=== PATIENT | female | born 1960 | race Caucasian/White ===

== ENCOUNTER 2017-05-04 09:07 | Emergency (ER) | payer OTHER, BC ==
[~2017-05-04] VITALS: Ht 157.5 cm; Wt 95.4 kg
[~2017-05-04 09:07] MED LIST: DULO1CAP PO; MELOX PO; MOBI4TAB PO
[2017-05-04] MEDS ORDERED: DULO30CA PO (09:14)
[2017-05-04] MEDS ORDERED: PERCOCET 5MG/325MG TAB PO ONE (10:00)
[2017-05-04] MEDS ORDERED: PERC5TAB12 PO (11:27)
[2017-05-04] MEDS ORDERED: CYCL5TAB PO (11:30)
[2017-05-04 11:35] VITALS: BP 133/85
--- NOTE | 2017-05-04 12:20 | REP ---
RIGHT RIBS, PA CHEST, FIVE VIEWS: HISTORY: Pain. Linear densities are present in the lower lobes consistent with atelectasis or scar. The heart is normal in size. The pulmonary vasculature is normal in appearance. The bony structure is intact. IMPRESSION: Bibasilar atelectasis or scar. Signed by Aram Longo MD 05/04/2017 12:27 P
== END 2017-05-04 11:42 | disposition home or self-care (01) ==
LOC: M ED 09:07
DX: S23.41XA Sprain of ribs, initial encounter (principal); X50.0XXA Overexertion from strenuous movement or load, initial encounter; Y92.89 Other specified places as the place of occurrence of the external cause; Y93.89 Activity, other specified; Y99.0 Civilian activity done for income or pay

== ENCOUNTER 2017-06-15 19:42 | Emergency (ER) | payer BC, OTHER ==
[~2017-06-15] VITALS: Ht 160 cm; Wt 97.9 kg
[~2017-06-15 19:42] MED LIST changes: +CYCL5TAB PO; +DULO30CA PO; +PERC5TAB12 PO
[2017-06-15 19:44] VITALS: BP 136/77
[2017-06-15] MEDS ORDERED: FLUO20CA19 PO (19:48)
[2017-06-15] MEDS ORDERED: NORCO, ANEXSIA 5/325MG TABLET (HYDROcodone/ACETAMINOPHEN) PO ONE (20:30)
[2017-06-15] MEDS ORDERED: HYDR-3713 PO (20:51)
[2017-06-15] MEDS ORDERED: NORCO 5/325MG TABLET (BULK FOR ED) PO ONE (21:00)
--- NOTE | 2017-06-15 23:14 | REP ---
Clinical: Trauma. Injury. Technique: Internal rotation, external rotation, and Y view of the right shoulder. Findings: Age-related arthritic degenerative changes include cortical irregularity and subtle spurring at the acromioclavicular joint. No obvious acute fracture dislocation. Glenohumeral joint appears intact and normal. No periarticular calcifications or subcutaneous emphysema noted. Impression: Age-related degenerative changes without acute fracture or dislocation. Signed by Alejandro Acosta MD 06/15/2017 11:06 P
--- NOTE | 2017-06-15 23:17 | REP ---
Clinical: Trauma. Technique: Frontal view of the chest with multiple views of the right hemithorax. Findings: Frontal view of the chest suggests the feet chronic interstitial changes and possible left lower lobe atelectasis. Multiple views of the right hemithorax demonstrates no obvious acute rib fracture or pathology. Impression: 1. No obvious acute rib fracture. 2. Diffuse chronic interstitial changes with possible superimposed left lower lobe atelectasis. Signed by Alejandro Acosta MD 06/15/2017 11:08 P
== END 2017-06-15 21:05 | disposition home or self-care (01) ==
LOC: M ED 19:42
DX: S20.211A Contusion of right front wall of thorax, initial encounter (principal); S40.011A Contusion of right shoulder, initial encounter; V80.010A Animal-rider injured by fall from or being thrown from horse in noncollision accident, initial encounter; Y92.830 Public park as the place of occurrence of the external cause; Y93.52 Activity, horseback riding; Y99.8 Other external cause status; J44.9 Chronic obstructive pulmonary disease, unspecified; E66.9 Obesity, unspecified; Z79.899 Other long term (current) drug therapy; F17.210 Nicotine dependence, cigarettes, uncomplicated

== ENCOUNTER 2018-01-14 16:30 | Emergency (ER) | payer BC ==
[2018-01-14 17:52] LABS: BASO % 0.4 % (0.0-1.0); EOS # 0.2 10^3/uL (0.0-0.50); EOS % 3.6 % (0.0-3.0); HEMATOCRIT 39.9 % (36.0-47.0); HEMOGLOBIN 13.6 g/dl (12.0-16.0); IMMATURE GRANULOCYTE % 0.3 % (0-3.0); LYMPH % 30.4 % (24.0-44.0); MEAN CORPUSCULAR HEMOGLOBIN 30.8 pg (27.0-33.0); MEAN CORPUSCULAR HGB CONC 34.1 g/dl (32.0-36.5); MEAN CORPUSCULAR VOLUME 90.5 fl (80.0-96.0); MONO # 0.4 10^3/uL (0.0-0.8); MONO % 5.4 % (0.0-5.0); NEUTROPHILS % 59.9 % (36.0-66.0); PLATELET COUNT, AUTOMATED 240 10^3/uL (150-450); RED BLOOD COUNT 4.41 10^6/uL (4.00-5.40); RED CELL DISTRIBUTION WIDTH 12.7 % (11.5-14.5); WHITE BLOOD COUNT 6.7 10^3/uL (4.0-10.0)
[2018-01-14 18:17] LABS: ALBUMIN 3.2 GM/DL (3.2-5.2); ALT/SGPT 9 U/L (12-78); ANION GAP 6 MEQ/L (8-16); AST/SGOT 8 U/L (7-37); BILIRUBIN,DIRECT < 0.1 MG/DL (0.0-0.2); BLOOD UREA NITROGEN 13 MG/DL (7-18); CALCIUM LEVEL 8.4 MG/DL (8.5-10.1); CARBON DIOXIDE LEVEL 28 MEQ/L (21-32); CHLORIDE LEVEL 111 MEQ/L (98-107); CREATININE FOR GFR 0.73 MG/DL (0.55-1.30); GLOMERULAR FILTRATION RATE > 60.0 (>51); GLUCOSE, FASTING 93 MG/DL (70-100); LIPASE 99 U/L (73-393); MAGNESIUM LEVEL 2.1 MG/DL (1.8-2.4); POTASSIUM SERUM 3.5 MEQ/L (3.5-5.1); SODIUM LEVEL 145 MEQ/L (136-145); TROPONIN I < 0.02 NG/ML (< 0.10)
[2018-01-14 18:23] LABS: ALBUMIN/GLOBULIN RATIO 1.03 (1.00-1.93); ALKALINE PHOSPHATASE 77 U/L (45-117); BILIRUBIN,TOTAL 0.2 MG/DL (0.2-1.0); CK-MB VALUE MASS < 1.0 NG/ML (<3.6); CPK CREATINE PHOSPHOKINASE 57 U/L (26-192); FREE T4 1.03 NG/DL (0.76-1.46); MB/CK RELATIVE INDEX 1.75 (< OR =4); NT-PRO BNP 200 PG/ML (<125); TOTAL PROTEIN 6.3 GM/DL (6.4-8.2)
[2018-01-14 22:03] LABS: CPK CREATINE PHOSPHOKINASE 51 U/L (26-192); TROPONIN I < 0.02 NG/ML (< 0.10)
[2018-01-14 22:04] LABS: CK-MB VALUE MASS < 1.0 NG/ML (<3.6); MB/CK RELATIVE INDEX 1.96 (< OR =4)
== END 2018-01-14 22:30 | disposition home or self-care (01) ==
LOC: M ED 16:30
DX: I49.3 Ventricular premature depolarization (principal); F41.9 Anxiety disorder, unspecified; F32.9 Major depressive disorder, single episode, unspecified; F17.200 Nicotine dependence, unspecified, uncomplicated; Z82.49 Family history of ischemic heart disease and other diseases of the circulatory system; Z79.899 Other long term (current) drug therapy
CPT/HCPCS: 71045

== ENCOUNTER → 2018-04-28 | Outpatient (CLI) | payer BC ==
[2018-04-28 12:28] LABS: BASO # 0.1 10^3/uL (0.0-0.2); BASO % 0.6 % (0.0-1.0); EOS # 0.3 10^3/uL (0.0-0.50); EOS % 1.8 % (0.0-3.0); HEMATOCRIT 42.7 % (36.0-47.0); IMMATURE GRANULOCYTE % 0.9 % (0-3.0); LYMPH # 2.1 10^3/uL (1.5-4.5); LYMPH % 15.2 % (24.0-44.0); MEAN CORPUSCULAR HEMOGLOBIN 30.3 pg (27.0-33.0); MEAN CORPUSCULAR HGB CONC 32.8 g/dl (32.0-36.5); MEAN CORPUSCULAR VOLUME 92.4 fl (80.0-96.0); MONO # 0.8 10^3/uL (0.0-0.8); NEUTROPHILS # 10.5 10^3/uL (1.8-7.7); NEUTROPHILS % 75.5 % (36.0-66.0); PLATELET COUNT, AUTOMATED 324 10^3/uL (150-450); RED BLOOD COUNT 4.62 10^6/uL (4.00-5.40); RED CELL DISTRIBUTION WIDTH 12.5 % (11.5-14.5); WHITE BLOOD COUNT 13.9 10^3/uL (4.0-10.0)
== END ==
LOC: M ADAMS 09:24
DX: J20.9 Acute bronchitis, unspecified (principal)
CPT/HCPCS: 85025

== ENCOUNTER → 2018-05-12 | Outpatient (CLI) | payer BC | LOC: M RAD 15:26 | DX: Z12.31 Encounter for screening mammogram for malignant neoplasm of breast (principal) | CPT/HCPCS: 77067 ==

== ENCOUNTER → 2018-06-30 | Outpatient (REF) | payer BC ==
[2018-06-30 13:13] LABS: BASO # 0.1 10^3/uL (0.0-0.2); BASO % 0.8 % (0.0-1.0); EOS # 0.3 10^3/uL (0.0-0.50); EOS % 3.8 % (0.0-3.0); HEMATOCRIT 44.3 % (36.0-47.0); HEMOGLOBIN 14.4 g/dl (12.0-15.5); IMMATURE GRANULOCYTE % 0.3 % (0-3.0); LYMPH # 1.7 10^3/uL (1.5-4.5); LYMPH % 26.3 % (24.0-44.0); MEAN CORPUSCULAR HEMOGLOBIN 30.4 pg (27.0-33.0); MEAN CORPUSCULAR HGB CONC 32.5 g/dl (32.0-36.5); MEAN CORPUSCULAR VOLUME 93.5 fl (80.0-96.0); MONO # 0.3 10^3/uL (0.0-0.8); MONO % 5.1 % (0.0-5.0); NEUTROPHILS # 4.2 10^3/uL (1.8-7.7); NEUTROPHILS % 63.7 % (36.0-66.0); PLATELET COUNT, AUTOMATED 286 10^3/uL (150-450); RED BLOOD COUNT 4.74 10^6/uL (4.00-5.40); RED CELL DISTRIBUTION WIDTH 12.6 % (11.5-14.5); WHITE BLOOD COUNT 6.5 10^3/uL (4.0-10.0)
[2018-06-30 13:32] LABS: ALBUMIN 3.8 GM/DL (3.2-5.2); ALKALINE PHOSPHATASE 72 U/L (45-117); ALT/SGPT 19 U/L (12-78); ANION GAP 7 MEQ/L (8-16); AST/SGOT 12 U/L (7-37); BILIRUBIN,TOTAL 0.5 MG/DL (0.2-1.0); BLOOD UREA NITROGEN 13 MG/DL (7-18); CALCIUM LEVEL 9.1 MG/DL (8.5-10.1); CARBON DIOXIDE LEVEL 26 MEQ/L (21-32); CHLORIDE LEVEL 109 MEQ/L (98-107); CREATININE FOR GFR 0.89 MG/DL (0.55-1.30); FREE THYROXINE INDEX 3.2 % (1.3-4.8); GLOMERULAR FILTRATION RATE > 60.0 (>51); GLUCOSE, FASTING 136 MG/DL (70-100); POTASSIUM SERUM 4.5 MEQ/L (3.5-5.1); SODIUM LEVEL 142 MEQ/L (136-145); T UPTAKE 29 % (30-39); THYROXINE (T4) 11.2 UG/DL (4.5-12.0); TOTAL 25(OH) VITAMIN D 18.7 NG/ML (30.0-100.0); TOTAL PROTEIN 6.1 GM/DL (6.4-8.2)
[2018-06-30 13:34] LABS: ALBUMIN/GLOBULIN RATIO 1.65 (1.00-1.93)
[2018-06-30 14:41] LABS: APPEARANCE, URINE CLEAR (CLEAR); BACTERIA, URINE AUTO NEGATIVE (NEGATIVE); BILIRUBIN, URINE AUTO NEGATIVE (NEGATIVE); BLOOD, URINE BLOOD 1+ (NEGATIVE); COLOR, URINE YELLOW (YELLOW); GLUCOSE, URINE (UA) AUTO NEGATIVE (NEGATIVE); KETONE, URINE AUTO NEGATIVE (NEGATIVE); LEUKOCYTE ESTERASE, URINE AUTO NEGATIVE (NEGATIVE); MUCUS, URINE SMALL (NEGATIVE); NITRITE, URINE AUTO NEGATIVE (NEGATIVE); PROTEIN, URINE AUTO NEGATIVE (NEGATIVE); RBC, URINE AUTO 4 /HPF (0-3); SPECIFIC GRAVITY URINE AUTO 1.011 (1.002-1.035); SQUAMOUS EPITHELIAL CELL UR AU 1 /HPF (0-6); UROBILINOGEN, URINE AUTO 0.2 mg/dL (0.0-2.0); WBC, URINE AUTO 0 /HPF (0-3)
[2018-06-30 20:04] LABS: ESTIMATED AVERAGE GLUCOSE 111 MG/DL (60-110); HEMOGLOBIN A1c 5.5 %
== END ==
LOC: M LAB REF 12:14
DX: F43.10 Post-traumatic stress disorder, unspecified (principal)
CPT/HCPCS: 84443

== ENCOUNTER 2018-12-23 07:18 | Emergency (ER) | payer OTHER, BC ==
[~2018-12-23] VITALS: Ht 160 cm; Wt 100.0 kg
[~2018-12-23 07:18] MED LIST changes: +FLUO20CA19 PO; +HYDR-3713 PO
[2018-12-23] MEDS ORDERED: OMEP20CA3 (07:23)
--- NOTE | 2018-12-23 08:33 | REP ---
LEFT HUMERUS, TWO VIEWS: There is no evidence of an acute fracture, dislocation or intrinsic bone disease. IMPRESSION: No fracture or dislocation. Electronically Signed by Zackery Bermudez MD 12/23/2018 08:30 P
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
[2018-12-23] MEDS ORDERED: ROBA500T PO (09:15)
[2018-12-23] MEDS ORDERED: NAPR-50 PO (09:15)
[2018-12-23 09:30] VITALS: BP 137/69
== END 2018-12-23 09:42 | disposition home or self-care (01) ==
LOC: M ED 07:18
DX: S09.90XA Unspecified injury of head, initial encounter (principal); S13.4XXA Sprain of ligaments of cervical spine, initial encounter; S43.402A Unspecified sprain of left shoulder joint, initial encounter; W22.8XXA Striking against or struck by other objects, initial encounter; Y92.89 Other specified places as the place of occurrence of the external cause; Y99.0 Civilian activity done for income or pay; K21.9 Gastro-esophageal reflux disease without esophagitis; F33.9 Major depressive disorder, recurrent, unspecified; Z79.899 Other long term (current) drug therapy; F17.210 Nicotine dependence, cigarettes, uncomplicated